=== PATIENT | male | born 1960 | race Caucasian/White ===

== ENCOUNTER 2016-11-08 05:57 | Observation (INO) | payer BC ==
--- NOTE | ~2016-11-08 | OP ---
Record Of Operation [facility] [address] [place]. [address] NAME: ANITHA AVALOS : 64 STATUS : ADM Kevin PAT#: [id number] AGE: 56 ADM/REG DATE : 11/08/16 MR#: [id number] REPORT SERV DATE: 11/08/16 DICTATED BY: DAJUAN VALDEZ DATE: 11/08/16 REPORT STATUS : Draft TRANSCRIBED BY: MODL DATE: 11/08/16 DATE OF PROCEDURE: 11/08/2016 PREOPERATIVE DIAGNOSIS: Metastatic thyroid cancer, left neck. POSTOPERATIVE DIAGNOSIS: Metastatic thyroid cancer, left neck. PROCEDURE PERFORMED: 1. Left lateral neck dissection levels 2 through 5. 2. Transposition of cranial nerve 11, left-side. SURGEON: Dajuan Valdez M.D. SKI TECHNICIAN: Shawn Villarreal. ANESTHESIA: General. COMPLICATIONS: None. CONDITION: Stable to recovery. 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 PROCEDURE IN DETAIL: The patient was identified in preoperative holding, taken back to the operating room, and placed supine on the operating room table. General anesthesia was established. He was prepped and draped in a standard fashion for the operation. The apron- type incision was marked from mastoid tip to the anterior neck and infiltrated with 5 mL of 1% lidocaine with 1:100,000 epinephrine after a time-out was called and the patient and procedure were confirmed. He was then prepped and draped in a standard fashion for the operation. Using 2.5x loupe magnification and headlight illumination, the operation commenced. A 15 blade was used to make the skin incision and elevate subplatysmal flaps superiorly to the mandible, inferiorly to the clavicle, laterally to the trapezius muscle. We then dissected the fascia off the sternomastoid muscle preserving the greater auricular nerve and external jugular vein and dissecting in the level 5 to identifying the spinal accessory nerve confirming this with the nerve stimulating probe and then doing a 300-degree dissection of the nerve, removing lymphatic tissue from around it and transposing it posterolaterally to facilitate the dissection. We then went into the level 5 supraclavicular fossa along the clavicle dropping the soft tissue down into the neck and then identifying the transverse cervical vessels. The transverse cervical vessels were preserved. Several cervical rootlets were sacrificed and several were preserved based on location. We then rotated the soft tissue out of the supraclavicular fossa posterior neck and excised that prior to delivering it under the sternomastoid muscle and sent that as left level 5 lymph nodes. We then delivered the soft tissue under the sternomastoid muscle and then dissected this over the carotid artery and jugular vein. The thoracic duct was not encountered. Lymph nodes from levels 2, 3, and 4 were dissected and the upper portion of Record Of Operation [address] [place]. [address] NAME: ANITHA AVALOS : 64 STATUS : ADM Kevin PAT#: [id number] AGE: 56 ADM/REG DATE : 11/08/16 MR#: [id number] REPORT SERV DATE: 11/08/16 DICTATED BY: DAJUAN VALDEZ DATE: 11/08/16 REPORT STATUS : Draft TRANSCRIBED BY: MODL DATE: 11/08/16 the spinal accessory nerve was transposed as well and delivered these lymph nodes out of the spinal or out of the submuscular recess and to deliver them under the spinal accessory nerve. It was 360 degree dissected in its upper portion as well. The soft tissue of levels 2, 3, and 4 were taken off the jugular vein and carotid artery with a 15 blade and then the omohyoid muscle was preserved along with the ansa cervicalis as well as the external jugular vein. There was a lymph node adjacent to the thyroid ala on the left side in level 3 PET positive and this was identified as well and removed and confirmed with pathology to be papillary thyroid cancer. At the end of the case, the wound was irrigated. Bipolar cautery was used for hemostasis. The spinal accessory nerve stimulated affectively. The wound was closed with 3-0 Vicryl suture and ly. A 10-Kazakh flat fully perforated drain was placed as well. There were no complications. PH/MODL Dajuan Valdez M.D. / [id number] CC: Zulay Humphrey M.D.
[~2016-11-08 05:57] MED LIST: IBU-200200 MG PO; LEVOTHYROXIN200 MCG PO; MULTIVIT/MIN PO
[2016-11-09] MEDS ORDERED: NORCO1 TA1 PO (08:21)
== END 2016-11-09 09:54 | disposition home or self-care (01) ==
LOC: SDC 05:57 → SDC/OF 14:23 → IMCU 18:03
PROVIDERS: Specialist
PROC: 07T20ZZ Resection of Left Neck Lymphatic, Open Approach (ICD-10-PCS; 2016-11-08)
PROC: 07B20ZX Excision of Left Neck Lymphatic, Open Approach, Diagnostic (ICD-10-PCS; principal; 2016-11-08 07:15)
DX: C77.0 Secondary and unspecified malignant neoplasm of lymph nodes of head, face and neck (principal); E89.0 Postprocedural hypothyroidism; Z85.850 Personal history of malignant neoplasm of thyroid; Z79.899 Other long term (current) drug therapy; Z82.49 Family history of ischemic heart disease and other diseases of the circulatory system
CPT/HCPCS: 36415; 86850; 86900; 86901; 88305; 88307; 88331; 96374; A9270-GY; C1781; G0378; J0690; J1170; J2250; J2405; J2710; J3010